=== PATIENT | male | born 1945 | race Caucasian/White ===

== ENCOUNTER 2020-06-13 04:26 | Emergency (ER) | payer MEDICARE ==
[2020-06-13] MEDS ORDERED: Sodium Chloride 0.9% 2.5 ML Syringe FLUSH PRN (04:28)
[2020-06-13] MEDS ORDERED: Sodium Chloride 0.9% 10 ML Syringe FLUSH PRN (04:28)
--- NOTE | 2020-06-13 04:30 | EDM.PDOC ---
<Andrews Leach - Last Filed: 06/13/20 05:19> ED HPI GENERAL MEDICAL PROBLEM - General Stated Complaint: CHEST PAIN Time Seen by Provider: 06/13/20 04:28 Source of Information: Reports: Patient History Limitations: Reports: No Limitations - History of Present Illness INITIAL COMMENTS - FREE TEXT/NARRATIVE: 75-year-old male past medical history COPD, CAD s/p cabg and 2x MT, HTN, HLD presents for chest pain. Patient states that he woke up around 2:30 AM with a left anterior chest pain, non-radiating. He had some nausea and did break out into a sweat. He did not vomit but he notes that he had an episode of diarrhea. He did not have any increased shortness of breath with this episode. He took 2 nitroglycerin tablets and notes that the pain has since gone away. He currently has no complaints. He denies any lower extremity swelling or pain. He is uncertain of his last cardiac catheterization but thinks it was roughly 1 year ago. He typically receives his medical care in [place]. Left Upper Chest Pain Score (Numeric/FACES): 2 - Related Data Allergies Allergy/AdvReac Type Severity Reaction Status Date / Time No Known Allergies Allergy Verified 06/13/20 04:31 Home Meds: Home Meds Aspirin 81 mg PO DAILY 05/09/16 [History] Metoprolol Succinate [Toprol XL] 25 mg PO DAILY 06/13/20 [History] Nitroglycerin [Nitrostat] 0.4 mg SL .EVERY 5 MINUTES PRN MDD 3 TABLETS 06/13/20 [History] atorvaSTATin [Lipitor] 80 mg PO DAILY 06/13/20 [History] Past Medical History Cardiovascular History: Reports: MT Respiratory History: Reports: COPD - Past Surgical History Cardiovascular Surgical History: Reports: Coronary Artery Bypass Social & Family History - Family History Family Medical History: No Pertinent Family History ED ROS GENERAL - Review of Systems Review Of Systems: Comprehensive ROS is negative, except as noted in HPI. ED EXAM, GENERAL - Physical Exam Exam: See Below Exam Limited By: No Limitations General Appearance: Alert, WD/WN, No Apparent Distress Throat/Mouth: Normal Voice, No Airway Compromise Head: Atraumatic, Normocephalic Respiratory/Chest: No Respiratory Distress, Lungs Clear, Normal Breath Sounds, No Accessory Muscle Use Cardiovascular: Normal Peripheral Pulses, Regular Rate, Rhythm Extremities: Normal Inspection Neurological: Alert, Normal Gait Psychiatric: Normal Affect, Normal Mood Skin Exam: Warm, Dry, Intact, Normal Color #1 Interpretation EKG Date: 06/13/20 Time: 04:23 Rhythm: NSR Rate (Beats/Min): 51 [place]: RAD-Right [place] Deviation P-Wave: Present QRS: Normal ST-T: Normal QT: Normal TX/PQ Interval: 140 EKG Interpretation Comments: no ischemic changes Course - Re-Assessments/Exams Free Text/Narrative Re-Assessment/Exam: 06/13/20 04:44 We will get chest pain work-up labs. Will give aspirin. Will get chest x-ray. Will follow up results and disposition accordingly. 06/13/20 05:15 Initial set of labs negative; will get repeat troponin at 7:30AM and reassess. Patient continues to deny pain in ED. Departure - Departure Disposition: Against Medical Advice 07 Clinical Impression: Acute coronary syndrome - Discharge Information Referrals: PCP,Not In Area [Primary Care Provider] - Additional Instructions: You have a significant risk of having an MT in the next 1 to 30 days. I want to send you to a close facility where you can have a bypass or a stress test. You understand you are taking the risk of having this heart attack by leaving. He also understand that it is imperative that you take a full aspirin every day until you are able to get a cutter operator to evaluate you more thoroughly. Fully understands the risk. He has the capacity to do so. He is very conversant about the situation. He is can have his family drive him to another hospital because he will not go to either the closest to facilities here for cardiac catheterization. Audiology [facility] - cardiology [address] [place] [id number] The following information is given to patients seen in the emergency department who are being discharged to home. This information is to outline your options for follow-up care. We provide all patients seen in our emergency department with a follow-up referral. The need for follow-up, as well as the timing and circumstances, are variable depending upon the specifics of your emergency department visit. If you don't have a primary care physician on staff, we will provide you with a referral. We always advise you to contact your personal physician following an emergency department visit to inform them of the circumstance of the visit and for follow-up with them and/or the need for any referrals to a consulting specialist. The emergency department will also refer you to a specialist when appropriate. This referral assures that you have the opportunity for follow-up care with a specialist. All of these measure are taken in an effort to provide you with optimal care, which includes your follow-up. Under all circumstances we always encourage you to contact your private physician who remains a resource for coordinating your care. When calling for follow-up care, please make the office aware that this follow-up is from your recent emergency room visit. If for any reason you are refused follow-up, please contact the [facility] Emergency Department at and asked to speak to the emergency department charge nurse. <Jose Leach - Last Filed: 06/13/20 08:30> Course - Vital Signs Text/Narrative:: At the time the patient was signed out to me by my partner at the end of his shift the patient is resting comfortably. The plan is to get a troponin I at 7:30 AM and then decide a disposition. Of the heart score is 5 with 2 points for age alone 2 points for his history of atherosclerotic heart disease and one- point for his already of pain which went away with nitroglycerin. The case is complicated by the fact that we do not have interventional cardiology at this facility and he would have to be transferred out of town, not totally unexpected and he might suffer angina, and his medical care is provided in [place]. I discussed disposition with him and involve the hospitalist and cutter operator from out of town if necessary when I am ready to make a disposition. 8:29 AM the patient has the capacity to understand the risk and I explained to him that he has a significant risk of coronary vessel disease with unstable angina that might result in an MT acutely or within the next 30 days. He does not want to be transferred to the nearest facility. He does not want to be transferred to the second nearest facility. He refuses that transfer and understands he needs a catheterization or stress test. The patient assumes the risk and is can have his family take him by private vehicle or commercial air to facility that he trusts. He has no reason to demonstrate any diminished capacity that would allow me to take away his right to make that decision and take that risk. Last Recorded V/S: Last Vital Signs Temp 36.3 C 06/13/20 04:33 Pulse 50 L 06/13/20 06:46 Resp 16 06/13/20 06:46 BP 133/64 06/13/20 06:46 Pulse Ox 94 L 06/13/20 06:46 - Orders/Labs/Meds Orders: Active Orders 24 hr Category Date Time Status Cardiac Monitoring [RC] . DIRECTED Care 06/13/20 04:28 Active EKG Documentation Completion [RC] STAT Care 06/13/20 04:28 Active Pulse Oximetry [RC] ASDIRECTED Care 06/13/20 04:28 Active Sodium Chloride 0.9% [Saline Flush] Med 06/13/20 04:28 Active 10 ml FLUSH ASDIRECTED PRN Sodium Chloride 0.9% [Saline Flush] Med 06/13/20 04:28 Active 2.5 ml FLUSH ASDIRECTED PRN Saline Lock Insert [OM.PC] Stat Oth 06/13/20 04:28 Ordered Labs: Laboratory Tests 06/13/20 06/13/20 06/13/20 Range/Units 04:36 04:36 04:36 WBC 9.83 (4.0-11.0) K/uL RBC 4.65 (4.50-5.90) M/uL Hgb 15.4 (13.0-17.0) g/dL Hct 46.1 (38.0-50.0) % MCV 99.1 H (80.0-98.0) fL MCH 33.1 H (27.0-32.0) pg MCHC 33.4 (31.0-37.0) g/dL RDW Std Deviation 49.3 (28.0-62.0) fl RDW Coeff of Rajiv 14 (11.0-15.0) % Plt Count 203 (150-400) K/uL MPV 9.80 (7.40-12.00) fL Neut % (Auto) 55.5 (48.0-80.0) % Lymph % (Auto) 33.3 (16.0-40.0) % [place] % (Auto) 9.0 (0.0-15.0) % Eos % (Auto) 1.8 (0.0-7.0) % Baso % (Auto) 0.4 (0.0-1.5) % Neut # (Auto) 5.5 (1.4-5.7) K/uL Lymph # (Auto) 3.3 H (0.6-2.4) K/uL [place]rill # (Auto) 0.9 H (0.0-0.8) K/uL Eos # (Auto) 0.2 (0.0-0.7) K/uL Baso # (Auto) 0.0 (0.0-0.1) K/uL Nucleated RBC % 0.0 /100WBC Nucleated RBCs # 0 K/uL Sodium 141 (136-148) mmol/L Potassium 4.2 (3.5-5.1) mmol/L Chloride 105 (98-107) mmol/L Carbon Dioxide 30.0 (21.0-32.0) mmol/L BUN 13 (7.0-18.0) mg/dL Creatinine 1.4 H (0.8-1.3) mg/dL Est Cr Clr Drug Dosing 50.05 mL/min Estimated GFR (MDRD) 49.7 ml/min Glucose 103 (74-106) mg/dL Calcium 8.5 (8.5-10.1) mg/dL Total Bilirubin 0.3 (0.2-1.0) mg/dL AST 18 (15-37) IU/L ALT 26 (14-63) IU/L Alkaline Phosphatase 75 (46-116) U/L Troponin I < 0.050 (0.000-0.056) ng/mL B-Natriuretic Peptide 49 (<100) PG/ML Total Protein 7.1 (6.4-8.2) g/dL Albumin 3.3 L (3.4-5.0) g/dL Globulin 3.8 (2.6-4.0) g/dL Albumin/Globulin Ratio 0.9 (0.9-1.6) Urine Color Urine Appearance Urine pH (5.0-8.0) Ur Specific [place] (1.001-1.035) Urine Protein (NEGATIVE) mg/dL Urine Glucose (UA) (NEGATIVE) mg/dL Urine Ketones (NEGATIVE) mg/dL Urine Occult Blood (NEGATIVE) Urine Nitrite (NEGATIVE) Urine Bilirubin (NEGATIVE) Urine Urobilinogen (<2.0) EU/dL Ur Leukocyte Esterase (NEGATIVE) 06/13/20 06/13/20 Range/Units 04:54 07:32 WBC (4.0-11.0) K/uL RBC (4.50-5.90) M/uL Hgb (13.0-17.0) g/dL Hct (38.0-50.0) % MCV (80.0-98.0) fL MCH (27.0-32.0) pg MCHC (31.0-37.0) g/dL RDW Std Deviation (28.0-62.0) fl RDW Coeff of Rajiv (11.0-15.0) % Plt Count (150-400) K/uL MPV (7.40-12.00) fL Neut % (Auto) (48.0-80.0) % Lymph % (Auto) (16.0-40.0) % [place] % (Auto) (0.0-15.0) % Eos % (Auto) (0.0-7.0) % Baso % (Auto) (0.0-1.5) % Neut # (Auto) (1.4-5.7) K/uL Lymph # (Auto) (0.6-2.4) K/uL [place] # (Auto) (0.0-0.8) K/uL Eos # (Auto) (0.0-0.7) K/uL Baso # (Auto) (0.0-0.1) K/uL Nucleated RBC % /100WBC Nucleated RBCs # K/uL Sodium (136-148) mmol/L Potassium (3.5-5.1) mmol/L Chloride (98-107) mmol/L Carbon Dioxide (21.0-32.0) mmol/L BUN (7.0-18.0) mg/dL Creatinine (0.8-1.3) mg/dL Est Cr Clr Drug Dosing mL/min Estimated GFR (MDRD) ml/min Glucose (74-106) mg/dL Calcium (8.5-10.1) mg/dL Total Bilirubin (0.2-1.0) mg/dL AST (15-37) IU/L ALT (14-63) IU/L Alkaline Phosphatase (46-116) U/L Troponin I < 0.050 (0.000-0.056) ng/mL B-Natriuretic Peptide (<100) PG/ML Total Protein (6.4-8.2) g/dL Albumin (3.4-5.0) g/dL Globulin (2.6-4.0) g/dL Albumin/Globulin Ratio (0.9-1.6) Urine Color YELLOW Urine Appearance CLEAR Urine pH 5.5 (5.0-8.0) Ur Specific [place] >= 1.030 (1.001-1.035) Urine Protein NEGATIVE (NEGATIVE) mg/dL Urine Glucose (UA) NEGATIVE (NEGATIVE) mg/dL Urine Ketones NEGATIVE (NEGATIVE) mg/dL Urine Occult Blood NEGATIVE (NEGATIVE) Urine Nitrite NEGATIVE (NEGATIVE) Urine Bilirubin NEGATIVE (NEGATIVE) Urine Urobilinogen 0.2 (<2.0) EU/dL Ur Leukocyte Esterase NEGATIVE (NEGATIVE) Departure - Departure Time of Disposition: 08:26 Condition: Fair Sepsis Event Note (ED) - Focused Exam Vital Signs: Vital Signs Temp Pulse Resp BP Pulse Ox 06/13/20 06:46 50 L 16 133/64 94 L 06/13/20 06:16 53 L 16 113/57 L 96 06/13/20 05:46 54 L 14 110/54 L 95 06/13/20 05:17 53 L 16 123/56 L 96 06/13/20 04:33 36.3 C 53 L 18 128/63 98
[2020-06-13] MEDS ORDERED: Aspirin 81 MG Tab.Chew PO ONE (04:31)
--- NOTE | 2020-06-13 05:05 | CR ---
INDICATION: Chest pain TECHNIQUE: Portable upright AP view of the chest COMPARISON: PA and lateral chest radiograph 05/09/2016 FINDINGS: A 14 mm nodular density is noted in the left lower lung. There is also a 10 mm nodular density in the right lung base. The lungs are otherwise clear. There is no sizable pleural effusion or pneumothorax. The cardiomediastinal silhouette is normal. Sternotomy wires are noted. IMPRESSION: 1. Bilateral nodular opacities suggesting presence of pulmonary nodules, new since prior. Follow-up chest CT is recommended non emergently for confirmation. 2. No acute radiographic abnormality. Dictated by Homar Medina MD @ Jun 13 2020 4:59AM Signed by Dr. Homar Medina @ Jun 13 2020 5:03AM
[2020-06-13 05:11] LABS: BLOOD UREA NITROGEN,BUN 13 mg/dL (7.0-18.0); CHLORIDE,CL 105 mmol/L (98-107); GLUCOSE RANDOM 103 mg/dL (74-106); POTASSIUM,K 4.2 mmol/L (3.5-5.1); SODIUM,NA 141 mmol/L (136-148)
[2020-06-13 06:46] VITALS: BP 133/64; PULSE 50
== END 2020-06-13 08:27 | disposition left against medical advice (07) ==
LOC: MW.ED 04:26
DX: I24.9 Acute ischemic heart disease, unspecified (principal); I25.10 Atherosclerotic heart disease of native coronary artery without angina pectoris; J44.9 Chronic obstructive pulmonary disease, unspecified; I25.2 Old myocardial infarction; E78.5 Hyperlipidemia, unspecified; Z95.1 Presence of aortocoronary bypass graft; Z79.82 Long term (current) use of aspirin; Z79.899 Other long term (current) drug therapy
CPT/HCPCS: 36415; 71045; 80053; 81003; 83880; 84484; 85025; 93005; 99285; A9270; 93010; 99284

== ENCOUNTER 2022-06-05 07:27 | Day surgery (SDC) | payer MEDICARE ==
[~2022-06-05 07:27] MED LIST: Lactated Ringers 1,000 ML IV SCH
[2022-06-05] MEDS ORDERED: Propofol 200 MG/20 ML SDV ONE (08:39)
[2022-06-05] MEDS ORDERED: fentaNYL 100 MCG/2 ML SDV ONE (08:39)
[2022-06-05] MEDS ORDERED: Lidocaine 2% 5 ML SDV ONE (08:39)
[2022-06-05 10:14] VITALS: BP 124/68; PULSE 47
== END 2022-06-05 10:05 | disposition home or self-care (01) ==
LOC: MW.SDS 07:27
PROVIDERS: ATTEND Surgery
DX: R19.5 Other fecal abnormalities (principal); J44.9 Chronic obstructive pulmonary disease, unspecified; I25.10 Atherosclerotic heart disease of native coronary artery without angina pectoris; F17.210 Nicotine dependence, cigarettes, uncomplicated; I25.2 Old myocardial infarction; K21.9 Gastro-esophageal reflux disease without esophagitis; M54.50 Low back pain, unspecified; M54.2 Cervicalgia; G89.29 Other chronic pain; Z79.899 Other long term (current) drug therapy; Z98.890 Other specified postprocedural states; Z95.1 Presence of aortocoronary bypass graft; Z79.82 Long term (current) use of aspirin
CPT/HCPCS: 45378; J2704; J3010; J7120; J3490

== ENCOUNTER 2022-08-02 17:50 | Emergency (ER) | payer MEDICARE ==
[2022-08-02] MEDS ORDERED: Sodium Chloride 0.9% 2.5 ML Syringe FLUSH PRN (19:14)
[2022-08-02] MEDS ORDERED: Sodium Chloride 0.9% 20 ML SDV IV PRN (19:14)
[2022-08-02] MEDS ORDERED: HYDROmorphone 2 MG/ML Syringe IVPUSH PRN (19:14)
[2022-08-02] MEDS ORDERED: Sodium Chloride 0.9% 10 ML Syringe FLUSH PRN (19:14)
[2022-08-02] MEDS ORDERED: Orphenadrine 60 MG/2 ML Inj IM ONE (19:17)
[2022-08-02 20:24] LABS: BLOOD UREA NITROGEN,BUN 14 mg/dL (7.0-18.0); CARBON DIOXIDE,CO2 26.1 mmol/L (21.0-32.0); CHLORIDE,CL 105 mmol/L (98-107); GLUCOSE RANDOM 101 mg/dL (74-106); POTASSIUM,K 4.4 mmol/L (3.5-5.1); SODIUM,NA 141 mmol/L (136-148)
[2022-08-02 20:26] LABS: ESTIMATED GFR 52 mL/min (>60)
[2022-08-02] MEDS ORDERED: Iopamidol 755 MG/ML 500 ML Multipack Bottle IVPUSH ONE (21:25)
[2022-08-02] MEDS ORDERED: Morphine 15 MG Tab PO ONE (22:22)
[2022-08-03 00:29] VITALS: BP 132/64; PULSE 81
== END 2022-08-02 22:48 | disposition home or self-care (01) ==
LOC: MW.ED 17:50
DX: S22.088A Other fracture of T11-T12 vertebra, initial encounter for closed fracture (principal); S32.038A Other fracture of third lumbar vertebra, initial encounter for closed fracture; I71.9 Aortic aneurysm of unspecified site, without rupture; R91.1 Solitary pulmonary nodule; J44.9 Chronic obstructive pulmonary disease, unspecified; K21.9 Gastro-esophageal reflux disease without esophagitis; I10 Essential (primary) hypertension; I25.2 Old myocardial infarction; Z95.1 Presence of aortocoronary bypass graft; Z79.82 Long term (current) use of aspirin; Z79.899 Other long term (current) drug therapy; W19.XXXA Unspecified fall, initial encounter
CPT/HCPCS: 36415; 71260; 72128; 72131; 74177; 80053; 80307; 81001; 85025; 85610; 93005; 96372; 96374; 99284; A9270; J1170; J2360; J3490; Q9967; 93010

== ENCOUNTER 2023-10-22 13:07 | Observation (INO) | payer MEDICARE ==
[~2023-10-22 13:07] MED LIST changes: +Iopamidol 755 MG/ML 500 ML Multipack Bottle IVPUSH STA; -Lactated Ringers 1,000 ML IV SCH
[2023-10-22] MEDS ORDERED: methylPREDNISolone Sodium Succinate 125 MG/2 ML SDV ONE ×2 (13:59)
[2023-10-22] MEDS ORDERED: Albuterol/Ipratropium 3.0-0.5 MG/3 ML Neb Soln ONE ×2 (14:13)
[2023-10-22] MEDS ORDERED: Albuterol 0.083% 2.5 MG/3 ML Neb Soln ONE (14:13)
[2023-10-22] MEDS ORDERED: Azithromycin 500 MG in Sodium Chloride 0.9% 250 ML IV ONE (16:43)
[2023-10-22] MEDS ORDERED: Azithromycin 500 MG Vial ONE (16:43)
[2023-10-22] MEDS ORDERED: cefTRIAXone 1 GM in Sodium Chloride 0.9% 50 ML IV ONE (16:43)
[2023-10-22] MEDS ORDERED: cefTRIAXone 1 GM Vial ONE (16:43)
[2023-10-22] MEDS ORDERED: Sodium Chloride 0.9% 50 ML ONE (16:43)
[2023-10-22] MEDS ORDERED: Sodium Chloride 0.9% 250 ML ONE (16:46)
[2023-10-22] MEDS ORDERED: Acetaminophen 325 MG Tab PO PRN (19:59)
[2023-10-22] MEDS ORDERED: Ondansetron 4 MG/2 ML SDV IVPUSH PRN (20:01)
[2023-10-22] MEDS: Albuterol/Ipratropium 3.0-0.5 MG/3 ML Neb Soln NEB SCH (22:11)
[2023-10-22] MEDS: Pantoprazole 40 MG in Sodium Chloride 0.9% 10 ML IVPUSH SCH (22:11)
[2023-10-22] MEDS ORDERED: Nitroglycerin 0.4 MG Tab.SL SL PRN (22:34)
[2023-10-23] MEDS: Enoxaparin 40 MG/0.4 ML Syringe SUBCUT SCH (05:27)
[2023-10-23 06:58] LABS: BASOPHILS ABSOLUTE AUTO 0.01 K/uL (0.00-0.20); BASOPHILS PERCENT AUTO 0.1 % (0.0-1.0); HEMATOCRIT 39.4 % (42.0-52.0); HEMOGLOBIN 13.2 g/dL (14.0-18.0); IMMATURE GRAN ABSOLUTE AUTO 0.09 K/uL (0.00-0.05); IMMATURE GRAN PERCENT AUTO 0.6 % (0.0-0.4); LYMPHOCYTES ABSOLUTE AUTO 1.16 K/uL (1.00-4.80); LYMPHOCYTES PERCENT AUTO 7.6 % (24.0-44.0); MEAN CORPUSCULAR HEMOGLOBIN 32.6 pg (28.0-32.0); MEAN CORPUSCULAR HGB CONC 33.5 g/dL (32.0-36.0); MEAN CORPUSCULAR VOLUME 97.3 fL (83.0-99.0); MEAN PLATELET VOLUME 9.6 fL (9.4-12.4); MONOCYTES PERCENT AUTO 4.6 % (0.0-8.0); NEUTROPHILS ABSOLUTE AUTO 13.36 K/uL (1.80-7.70); NEUTROPHILS PERCENT AUTO 87.1 % (41.0-71.0); PLATELET COUNT,PLT 171 K/uL (150-400); RED BLOOD CELL COUNT 4.05 M/uL (4.52-5.90); WHITE BLOOD CELL COUNT,WBC 15.32 K/uL (3.9-11.3)
[2023-10-23 07:25] LABS: A/G RATIO 0.9 (0.9-1.6); ALBUMIN 2.8 g/dL (3.4-5.0); BILIRUBIN TOTAL 0.3 mg/dL (0.2-1.0); CARBON DIOXIDE,CO2 22.3 mmol/L (21.0-32.0); CREATININE 1.5 mg/dL (0.8-1.3); EST CRCL DRUG DOSING (CG) 34.14 mL/min; PROTEIN TOTAL,TP 5.9 g/dL (6.4-8.2)
[2023-10-23 08:01] LABS: BASOPHILS ABSOLUTE AUTO 0.04 K/uL (0.00-0.20); BASOPHILS PERCENT AUTO 0.3 % (0.0-1.0); EOSINOPHILS ABSOLUTE AUTO 0.05 K/uL (0.00-0.45); EOSINOPHILS PERCENT AUTO 0.4 % (0.0-6.0); HEMATOCRIT 45.6 % (42.0-52.0); HEMOGLOBIN 15.2 g/dL (14.0-18.0); IMMATURE GRAN ABSOLUTE AUTO 0.03 K/uL (0.00-0.05); IMMATURE GRAN PERCENT AUTO 0.2 % (0.0-0.4); LYMPHOCYTES PERCENT AUTO 18.2 % (24.0-44.0); MEAN CORPUSCULAR HEMOGLOBIN 32.7 pg (28.0-32.0); MEAN CORPUSCULAR HGB CONC 33.3 g/dL (32.0-36.0); MEAN CORPUSCULAR VOLUME 98.1 fL (83.0-99.0); MEAN PLATELET VOLUME 9.3 fL (9.4-12.4); NEUTROPHILS ABSOLUTE AUTO 9.17 K/uL (1.80-7.70); NEUTROPHILS PERCENT AUTO 75.9 % (41.0-71.0); PLATELET COUNT,PLT 215 K/uL (150-400); RED BLOOD CELL COUNT 4.65 M/uL (4.52-5.90); WHITE BLOOD CELL COUNT,WBC 12.09 K/uL (3.9-11.3)
[2023-10-23] MEDS ORDERED: Non-Formulary Medication 1 Each (Fluticasone/Umeclidin/Vilanter [Trelegy Ellipta 100-62.5- INH SCH (09:00)
[2023-10-23 09:03] LABS: D-DIMER QUANTITATIVE 2.87 mg/L FEU (0.00-0.50); INR 1.05 (0.86-1.11); PTT,PARTIAL THROMBOPLSTIN TIME 26.2 SEC (23.9-30.7)
[2023-10-23] MEDS: methylPREDNISolone Sodium Succinate 40 MG/1 ML SDV IVPUSH SCH (09:18)
[2023-10-23] MEDS: Albuterol 0.083% 2.5 MG/3 ML Neb Soln NEB PRN (09:29)
[2023-10-23] MEDS: amLODIPine 5 MG Tab PO SCH (09:36)
[2023-10-23] MEDS: Sodium Chloride 0.9% 1,000 ML IV ONE (09:37)
[2023-10-23 09:41] LABS: CORONAVIRUS COVID-19 NAA NEGATIVE (NEGATIVE); INFLUENZA A NAA NEGATIVE (NEGATIVE); INFLUENZA B NAA NEGATIVE (NEGATIVE); RESPIRATORY SYNCYTIAL VIR NAA NEGATIVE (NEGATIVE)
[2023-10-23] MEDS: cefTRIAXone 1 GM in Sodium Chloride 0.9% 50 ML IV SCH (12:24)
[2023-10-23 13:08] LABS: A/G RATIO 1.2 (0.9-1.6); ALBUMIN 3.8 g/dL (3.4-5.0); BILIRUBIN TOTAL 0.4 mg/dL (0.2-1.0); CALCIUM 8.4 mg/dL (8.5-10.1); CARBON DIOXIDE,CO2 23.2 mmol/L (21.0-32.0); CREATININE 1.4 mg/dL (0.8-1.3); EST CRCL DRUG DOSING (CG) 36.58 mL/min; PROTEIN TOTAL,TP 7.1 g/dL (6.4-8.2)
[2023-10-23 13:37] LABS: LACTIC ACID 2.3 mmol/L (0.4-2.0)
[2023-10-23 15:00] VITALS: PULSE 65
[2023-10-23] MEDS ORDERED: Azithromycin 500 MG in Sodium Chloride 0.9% 250 ML IV SCH (15:00)
[2023-10-23 16:13] VITALS: BP 110/48
[2023-10-23] MEDS ORDERED: atorvaSTATin 40 MG Tab PO SCH (21:00)
[2023-10-26] MEDS: Iopamidol 755 MG/ML 500 ML Multipack Bottle IVPUSH STA (07:19)
== END 2023-10-23 13:00 | disposition home or self-care (01) ==
LOC: MW.ED 14:08 → MW.MS 18:15
PROVIDERS: ADMIT Family Medicine; ATTEND Family Medicine
DX: J44.0 Chronic obstructive pulmonary disease with (acute) lower respiratory infection (principal); J44.1 Chronic obstructive pulmonary disease with (acute) exacerbation; I10 Essential (primary) hypertension; E78.5 Hyperlipidemia, unspecified; I25.10 Atherosclerotic heart disease of native coronary artery without angina pectoris; K21.9 Gastro-esophageal reflux disease without esophagitis; Z95.1 Presence of aortocoronary bypass graft; Z79.82 Long term (current) use of aspirin; Z79.899 Other long term (current) drug therapy
CPT/HCPCS: 0241U; 36415; 71046; 71275; 80053; 83605; 83690; 84484; 85025; 85379; 85610; 85730; 87040; 93005; 94640; 96361; 96365; 96372; 96375; 99284; G0378; J0456; J0696; J1650; J2470; J2919; J3490; J7030; J7050; 93010; 99222; 99239; J7620-GY; Q9967

== ENCOUNTER 2024-01-29 21:30 | Emergency (ER) | payer MEDICARE ==
[2024-01-29] MEDS ORDERED: Sodium Chloride 0.9% 10 ML Syringe FLUSH PRN (21:33)
[2024-01-29 22:03] LABS: BASE EXCESS VENOUS -0.6 (-2.0-3.0); BASOPHILS ABSOLUTE AUTO 0.05 K/uL (0.00-0.20); BASOPHILS PERCENT AUTO 0.6 % (0.0-1.0); BICARBONATE,VENOUS 27 mEQ/mL (22-28); EOSINOPHILS PERCENT AUTO 2.6 % (0.0-6.0); HEMOGLOBIN 15.2 g/dL (14.0-18.0); IMMATURE GRAN ABSOLUTE AUTO 0.01 K/uL (0.00-0.05); IMMATURE GRAN PERCENT AUTO 0.1 % (0.0-0.4); LYMPHOCYTES ABSOLUTE AUTO 2.92 K/uL (1.00-4.80); LYMPHOCYTES PERCENT AUTO 37.3 % (24.0-44.0); MEAN CORPUSCULAR HEMOGLOBIN 33.3 pg (28.0-32.0); MEAN CORPUSCULAR HGB CONC 33.8 g/dL (32.0-36.0); MEAN CORPUSCULAR VOLUME 98.5 fL (83.0-99.0); MEAN PLATELET VOLUME 9.7 fL (9.4-12.4); MONOCYTES ABSOLUTE AUTO 0.77 K/uL (0.00-0.80); MONOCYTES PERCENT AUTO 9.8 % (0.0-8.0); NEUTROPHILS ABSOLUTE AUTO 3.88 K/uL (1.80-7.70); NEUTROPHILS PERCENT AUTO 49.6 % (41.0-71.0); PCO2 VENOUS 53 mmHG (41-51); PH,VENOUS 7.31 (7.31-7.41); PLATELET COUNT,PLT 209 K/uL (150-400); RED BLOOD CELL COUNT 4.57 M/uL (4.52-5.90); WHITE BLOOD CELL COUNT,WBC 7.83 K/uL (3.9-11.3)
[2024-01-29 22:04] LABS: PO2 VENOUS < 30 mmHG (35-45)
[2024-01-29 22:16] LABS: INR 1.04 (0.86-1.11)
[2024-01-29] MEDS: Albuterol/Ipratropium 3.0-0.5 MG/3 ML Neb Soln NEB ONE (22:18)
[2024-01-29] MEDS: Aspirin 81 MG Tab.Chew PO ONE (22:19)
[2024-01-29] MEDS: methylPREDNISolone Sodium Succinate 125 MG/2 ML SDV IVPUSH ONE (22:19)
[2024-01-29 22:37] LABS: A/G RATIO 0.9 (0.9-1.6); ALBUMIN 3.4 g/dL (3.4-5.0); BILIRUBIN TOTAL 0.4 mg/dL (0.2-1.0); CALCIUM 9.2 mg/dL (8.5-10.1); CARBON DIOXIDE,CO2 25.6 mmol/L (21.0-32.0); CREATININE 1.3 mg/dL (0.8-1.3); EST CRCL DRUG DOSING (CG) 51.96 mL/min; POTASSIUM,K 4.5 mmol/L (3.5-5.1); PROTEIN TOTAL,TP 7.2 g/dL (6.4-8.2)
[2024-01-29 22:41] LABS: CORONAVIRUS COVID-19 NAA NEGATIVE (NEGATIVE); INFLUENZA A NAA NEGATIVE (NEGATIVE); INFLUENZA B NAA NEGATIVE (NEGATIVE); RESPIRATORY SYNCYTIAL VIR NAA NEGATIVE (NEGATIVE)
[2024-01-30 00:07] VITALS: BP 124/57; PULSE 69
== END 2024-01-30 00:06 | disposition home or self-care (01) ==
LOC: MW.ED 21:30
DX: J44.1 Chronic obstructive pulmonary disease with (acute) exacerbation (principal); R07.9 Chest pain, unspecified; I10 Essential (primary) hypertension; E78.00 Pure hypercholesterolemia, unspecified; Z95.1 Presence of aortocoronary bypass graft; Z90.49 Acquired absence of other specified parts of digestive tract; Z79.899 Other long term (current) drug therapy
CPT/HCPCS: 0241U; 36415; 71045; 80053; 82803; 83690; 83735; 83880; 84484; 85025; 85610; 93005; 96374; 99285; A9270; J2919; 93010; 99284; J7620-GY

== ENCOUNTER 2024-11-10 06:12 | Emergency (ER) | payer MEDICARE ==
[2024-11-10] MEDS ORDERED: Sodium Chloride 0.9% 10 ML Syringe FLUSH PRN (06:19)
[2024-11-10] MEDS ORDERED: Sodium Chloride 0.9% 2.5 ML Syringe FLUSH PRN (06:19)
[2024-11-10 06:31] LABS: BASOPHILS ABSOLUTE AUTO 0.07 K/uL (0.00-0.20); BASOPHILS PERCENT AUTO 0.7 % (0.0-1.0); EOSINOPHILS ABSOLUTE AUTO 0.22 K/uL (0.00-0.45); EOSINOPHILS PERCENT AUTO 2.2 % (0.0-6.0); IMMATURE GRAN ABSOLUTE AUTO 0.03 K/uL (0.00-0.05); IMMATURE GRAN PERCENT AUTO 0.3 % (0.0-0.4); LYMPHOCYTES ABSOLUTE AUTO 3.97 K/uL (1.00-4.80); LYMPHOCYTES PERCENT AUTO 39.6 % (24.0-44.0); MEAN PLATELET VOLUME 9.2 fL (9.4-12.4); MONOCYTES ABSOLUTE AUTO 0.84 K/uL (0.00-0.80); MONOCYTES PERCENT AUTO 8.4 % (0.0-8.0); NEUTROPHILS ABSOLUTE AUTO 4.89 K/uL (1.80-7.70); NEUTROPHILS PERCENT AUTO 48.8 % (41.0-71.0); NRBC ABSOLUTE 0.00 K/uL (0.00-0.02); NRBC PERCENT 0.0 /100WBC (0.0-0.2); PLATELET COUNT,PLT 202 K/uL (150-400); RED BLOOD CELL COUNT 4.79 M/uL (4.52-5.90); WHITE BLOOD CELL COUNT,WBC 10.02 K/uL (3.9-11.3)
[2024-11-10 06:41] LABS: INR 1.02 (0.86-1.11)
[2024-11-10 07:00] LABS: A/G RATIO 1.1 (0.9-1.6); ALANINE AMINOTRANSFERASE,ALT 20 IU/L (14-63); ASPARTATE AMNIOTRANSFERASE,AST 21 IU/L (15-37); BILIRUBIN TOTAL 0.5 mg/dL (0.2-1.0); BLOOD UREA NITROGEN,BUN 16 mg/dL (7.0-18.0); CARBON DIOXIDE,CO2 29.5 mmol/L (21.0-32.0); CHLORIDE,CL 104 mmol/L (98-107); CREATININE 1.3 mg/dL (0.8-1.3); GLUCOSE RANDOM 103 mg/dL (74-106); POTASSIUM,K 3.9 mmol/L (3.5-5.1); PRO B-TYPE NATRIUR PEPT,BNPPRO 163 pg/mL (0-450); PROTEIN TOTAL,TP 7.2 g/dL (6.4-8.2); SODIUM,NA 142 mmol/L (136-148)
[2024-11-10 07:01] LABS: ESTIMATED GFR 57 mL/min (>60)
[2024-11-10 11:13] VITALS: BP 111/62; PULSE 59
== END 2024-11-10 11:13 | disposition home or self-care (01) ==
LOC: MW.ED 06:12
DX: R07.89 Other chest pain (principal); E78.00 Pure hypercholesterolemia, unspecified; I10 Essential (primary) hypertension; I25.2 Old myocardial infarction; J44.9 Chronic obstructive pulmonary disease, unspecified; K21.9 Gastro-esophageal reflux disease without esophagitis; Z86.16 Personal history of COVID-19; Z79.899 Other long term (current) drug therapy
CPT/HCPCS: 36415; 71045; 80053; 83690; 83880; 84484; 85025; 85610; 93005; 99285; A9270; 93010; 99284